=== PATIENT | female | born 1995 | race African-American/Black ===

== ENCOUNTER 2019-09-18 19:49 | Emergency (ER) | payer SELFPAY ==
[2019-09-18 19:55] VITALS: BP 115/73; PULSE 78; TEMP 97; BMI 20.1
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
[2019-09-18] MEDS ORDERED: KETOROLAC TROMETHAMINE 30 MG/1 ML VIAL IM ONE (20:41)
[2019-09-18] MEDS ORDERED: KETOROLAC TROMETHAMINE 30 MG/1 ML VIAL ONE (20:41)
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
== END 2019-09-18 20:47 | disposition home or self-care (01) ==
LOC: JERFT 19:49
PROC: 3E0233Z Introduction of Anti-inflammatory into Muscle, Percutaneous Approach (ICD-10-PCS; principal; 2019-09-18)
DX: S39.82XA Other specified injuries of lower back, initial encounter (principal); M54.5 Low back pain; Y04.2XXA Assault by strike against or bumped into by another person, initial encounter; Y93.89 Activity, other specified; Y92.59 Other trade areas as the place of occurrence of the external cause; Y99.8 Other external cause status; Y07.59 Other non-family member, perpetrator of maltreatment and neglect
CPT/HCPCS: 96372; 99282-25